=== PATIENT | male | born 1985 | race Caucasian/White ===

== ENCOUNTER 2017-01-09 17:06 | Emergency (ER) | payer OTHER ==
[2017-01-09 17:15] VITALS: BP 129/79; PULSE 60; TEMP 97.8; BMI 24.3
[2017-01-09 17:56] LABS: URINE APPEARANCE CLEAR; URINE BILIRUBIN NEGATIVE (NEGATIVE); URINE BLOOD NEGATIVE (NEGATIVE); URINE COLOR STRAW; URINE GLUCOSE (UA) NEGATIVE (NEGATIVE); URINE KETONE NEGATIVE (NEGATIVE); URINE NITRITE NEGATIVE (NEGATIVE); URINE PROTEIN NEGATIVE (NEGATIVE); URINE UROBILINOGEN NEGATIVE E.U./dl (0.2-1.0)
[2017-01-09 17:57] LABS: URINE LEUK ESTERASE TRACE (NEGATIVE)
[2017-01-09 17:59] LABS: URINE MUCUS RARE; URINE RBC 2 /hpf (0-3); URINE WBC 24 /hpf (3-5)
[2017-01-09] MEDS ORDERED: AZITHROMYCIN 1 GM PACKET PO ONE (18:10)
[2017-01-09] MEDS ORDERED: AZITHROMYCIN 1 GM PACKET ONE (18:11)
--- NOTE | 2017-01-09 18:16 | PDOC ---
History of Present Illness - General Chief Complaint: Urinary Problem Stated Complaint: URINARY PROBLEM Time Seen by Provider: 01/09/17 17:35 History Source: [employer]er Used (Francesca [id number]) Exam Limitations: Language Barrier - History of Present Illness Travel History: Yes ([place] ) Initial Comments: 01/09/17 18:11 31 yr male c/o 3 days painful urination with burning. Pt denies discharge. Pt admits to having unprotected sexual intercourse with 2 Women in [place] last month. Pt denies abd pain denies rectal pain or lesions. no medical or surgical history. Timing/Duration: reports: constant Past History - Past Medical History Allergies/Adverse Reactions: Allergies Allergy/AdvReac Type Severity Reaction Status Date / Time No Known Allergies Allergy Verified 01/09/17 17:12 Home Medications: Ambulatory Orders Cyclobenzaprine HCl [Flexeril -] 10 mg PO HS PRN #7 tablet 04/17/16 Ibuprofen 600 mg PO QID PRN #10 tablet 04/17/16 Hypercholesterolemia: Yes - Family Disease History Comment:: 01/09/17 18:12 none - Immunization History Immunization Up to Date: Yes - Psycho/Social/Smoking Cessation Hx Anxiety: No Suicidal Ideation: No Smoking History: Never smoked Have you smoked in the past 12 months: No Information on smoking cessation initiated: No Hx Alcohol Use: No Drug/Substance Use Hx: No Substance Use Type: None Abd/GI Specific PMHX - Complaint Specific PMHX Colitis: No Diverticulitis: No Gall Bladder Disease: No GERD: No Hepatitis: No Irritable Bowel Synd (IBS): No Pancreatitis: No GI Ulcer Disease: No Review of Systems - Review of Systems Able to Perform ROS?: Yes Is the patient limited Armenian proficient: No Constitutional: No: Symptoms Reported HEENTM: No: Symptoms Reported Respiratory: No: Symptoms reported Cardiac (ROS): No: Symptoms Reported ABD/GI: No: Symptoms Reported : Yes: Symptoms Reported, Burning Musculoskeletal: No: Symptoms Reported *Physical Exam - Vital Signs Last Vital Signs Temp Pulse Resp BP Pulse Ox 97.8 F 60 18 129/79 100 01/09/17 17:13 01/09/17 17:13 01/09/17 17:13 01/09/17 17:13 01/09/17 17:13 - Physical Exam General Appearance: Yes: Nourished, Appropriately Dressed HEENT: positive: EOMI, PAT, TMs Normal, Pharynx Normal Neck: positive: Supple. negative: Tender Respiratory/Chest: positive: Lungs Clear, Normal Breath Sounds Cardiovascular: positive: Regular Rhythm, Regular Rate Gastrointestinal/Abdominal: positive: Normal Bowel Sounds, Soft Male Genitalia: positive: normal genitalia. negative: discharge Musculoskeletal: positive: Normal Inspection Extremity: positive: Normal Capillary Refill, Normal Inspection, Normal Range of Motion Integumentary: positive: Normal Color, Dry, Warm Neurologic: positive: Fully Oriented, Alert, Normal Mood/Affect, Normal Response , Motor Strength / ED Treatment Course - ADDITIONAL ORDERS Additional order review: Laboratory Results 01/09/17 17:40 Urine Color Straw Urine Appearance Clear Urine pH 6.0 Ur Specific [place] 1.019 Urine Protein Negative Urine Glucose (UA) Negative Urine Ketones Negative Urine Blood Negative Urine Nitrite Negative Urine Bilirubin Negative Urine Urobilinogen Negative Ur Leukocyte Esterase Trace H Urine RBC 2 Urine WBC 24 Urine Mucus Rare Medical Decision Making - Medical Decision Making 01/09/17 18:13 cc: burning with urination for 3 days denies discharge unprotected sexual intercourse will treat for GC/chlamydia I have explained in detail that pt 's needs to be tested. pt understands pt refused to have HIV done, states he had HIV done last year. will do RPR . 01/09/17 18:15 *DC/Admit/Observation/Transfer Diagnosis at time of Disposition: Dysuria - Discharge Dispostion Disposition: HOME Condition at time of disposition: Improved - Referrals Referrals: [facility] Masoud Cintron [Outside] - Patient Instructions Additional Instructions: follow at the [facility] for HIV testing call [phone] always aurelio condoms during sexual activity return to ER for any worsening symptoms - Post Discharge Activity Work/School Note: Back to Work
== END 2017-01-09 19:34 | disposition home or self-care (01) ==
LOC: JERFT 17:06
DX: R30.0 Dysuria (principal)
CPT/HCPCS: 36415; 81003; 81015; 86593; 87086; 87491; 87591; 96372; 99281-25

== ENCOUNTER → 2017-02-12 | Emergency (ER) | payer OTHER ==
[~2017-02-12] MED LIST: CIPROFLOXACIN 250 MG TABLET (RESTRICTED TO ID) PO ONE; SODIUM CHLORIDE 1,000 ML IV STA; metroNIDAZOLE 250 MG TABLET ONE; metroNIDAZOLE 250 MG TABLET PO ONE
[2017-02-12 20:29] VITALS: BP 137/72; PULSE 64; TEMP 97.9; BMI 24.3
--- NOTE | 2017-02-12 20:55 | PDOC ---
History of Present Illness - History of Present Illness Initial Comments: 02/12/17 21:32 Patient is a 32 year old male with significant medical hx of hypercholesterolemia (diet controlled) who is presenting to the ED with two weeks of passing loose stools daily. The patient complains of associated intermittent abdominal cramping. He endorses recent travel to [place] in November but denies any symptoms upon arrival. The patient denies any fever, chills, nausea, vomiting, or difficulty urinating. <Michelle Morocho - Last Filed: 02/12/17 21:31> - General History Source: Patient Exam Limitations: No Limitations <Tristan Quintana - Last Filed: 02/12/17 22:56> - General Chief Complaint: Pain, Acute Stated Complaint: STOMACH PAIN Time Seen by Provider: 02/12/17 20:50 Past History <Michelle Morocho - Last Filed: 02/12/17 21:31> - Past Medical History Hypercholesterolemia: Yes - Immunization History Immunization Up to Date: Yes - Psycho/Social/Smoking Cessation Hx Anxiety: No Suicidal Ideation: No Smoking History: Never smoked Have you smoked in the past 12 months: No Hx Alcohol Use: No Drug/Substance Use Hx: No Substance Use Type: None <Tristan Quintana - Last Filed: 02/12/17 22:56> - Past Medical History Allergies/Adverse Reactions: Allergies Allergy/AdvReac Type Severity Reaction Status Date / Time No Known Allergies Allergy Verified 02/12/17 20:27 Home Medications: Ambulatory Orders Ciprofloxacin [Cipro -] 500 mg PO Q12H #14 tablet 02/12/17 Metronidazole [Flagyl -] 500 mg PO Q8H PRN #21 tablet 02/12/17 Review of Systems - Review of Systems Comments:: 02/12/17 21:32 GENERAL/CONSTITUTIONAL: No fever or chills. No weakness. HEAD, EYES, EARS, NOSE AND THROAT: No change in vision. No ear pain or discharge. No sore throat. CARDIOVASCULAR: No chest pain or shortness of breath. RESPIRATORY: No cough, wheezing, or hemoptysis. GASTROINTESTINAL: Abdominal cramping, loose stooling. No nausea, vomiting, or constipation. GENITOURINARY: No dysuria, frequency, or change in urination. MUSCULOSKELETAL: No joint or muscle swelling or pain. No neck or back pain. SKIN: No rash NEUROLOGIC: No headache, vertigo, loss of consciousness, or change in strength/ sensation. <RashawnMichelle - Last Filed: 02/12/17 21:31> *Physical Exam - Vital Signs Last Vital Signs Temp Pulse Resp BP Pulse Ox 97.9 F 64 18 137/72 100 02/12/17 20:27 02/12/17 20:27 02/12/17 20:27 02/12/17 20:27 02/12/17 20:27 - Physical Exam Comments: 02/12/17 21:32 GENERAL: Awake, alert, and fully oriented, in no acute distress HEAD: No signs of trauma EYES: PERRLA, EOMI, sclera anicteric, conjunctiva clear ENT: Auricles normal inspection, hearing grossly normal, nares patent, oropharynx clear without exudates. Moist mucosa NECK: Normal ROM, supple, no lymphadenopathy, JVD, or masses LUNGS: Breath sounds equal, clear to auscultation bilaterally. No wheezes, and no crackles HEART: Regular rate and rhythm, normal S1 and S2, no murmurs, rubs or gallops ABDOMEN: Soft, nontender, normoactive bowel sounds. No guarding, no rebound. No masses EXTREMITIES: Normal range of motion, no edema. No clubbing or cyanosis. No cords, erythema, or tenderness NEUROLOGICAL: Cranial nerves II through XII grossly intact. Normal speech, normal gait SKIN: Warm, Dry, normal turgor, no rashes or lesions noted. ENDOCRINE: No increased thirst. No abnormal weight change. HEMATOLOGIC/LYMPHATIC: No anemia, easy bleeding, or history of blood clots. ALLERGIC/IMMUNOLOGIC: No hives or skin allergy. <RashawnMichelle - Last Filed: 02/12/17 21:31> - Vital Signs Last Vital Signs Temp Pulse Resp BP Pulse Ox 97.9 F 64 18 137/72 100 02/12/17 20:27 02/12/17 20:27 02/12/17 20:27 02/12/17 20:27 02/12/17 20:27 <Tristan Quintana - Last Filed: 02/12/17 22:56> ED Treatment Course - LABORATORY CBC & Chemistry Diagram: 02/12/17 21:00 02/12/17 21:00 <Tristan Quintana - Last Filed: 02/12/17 22:56> Medical Decision Making - Medical Decision Making 02/12/17 21:22 A portion of this note was documented by scribe services under my direction. I have reviewed the details of the note, within reason, and agree with the documentation with the following case summary and management plan written by me. Patient treated in the ED. Nursing notes are reviewed and incorporated into the medical decision-making. Vital signs reviewed. Peripheral IV access obtained by the nurse, laboratory studies are drawn and sent, reviewed and interpreted by myself. Vital Signs Temp Pulse Resp BP Pulse Ox 97.9 F 64 18 137/72 100 02/12/17 20:27 02/12/17 20:27 02/12/17 20:27 02/12/17 20:27 02/12/17 20:27 32-year-old male with diet-controlled hyperlipidemia presents with 2 weeks of multiple loose stools daily. Patient reports some intermittent abdominal cramping but denies any nausea or vomiting. Denies fevers or chills. Patient did travel to [place] in November but reported no symptoms upon arrival. Denies sick contacts. Patient is nontender abdomen. We'll draw blood work to determine if there is any laboratory abnormalities. We'll likely initiate ciprofloxacin and Flagyl for empiric antibiotics for enteritis versus colitis. He is overall well-appearing, and appears hydrated. Appears nontoxic. 02/12/17 22:49 CBC, BMP 02/12/17 21:00 02/12/17 21:00 CMP Sodium 140 mmol/L (136-145) 02/12/17 21:00 Potassium 3.5 mmol/L (3.5-5.1) 02/12/17 21:00 Chloride 104 mmol/L (98-107) 02/12/17 21:00 Carbon Dioxide 29 mmol/L (21-32) 02/12/17 21:00 Anion Gap 7 (8-16) L 02/12/17 21:00 BUN 15 mg/dL (7-18) 02/12/17 21:00 Creatinine 0.7 mg/dL (0.7-1.3) 02/12/17 21:00 Creat Clearance w eGFR > 60 (>60) 02/12/17 21:00 Random Glucose 112 mg/dL (74-106) H 02/12/17 21:00 Calcium 9.3 mg/dL (8.5-10.1) 02/12/17 21:00 Total Bilirubin 0.6 mg/dL (0.2-1.0) 02/12/17 21:00 AST 21 U/L (15-37) 02/12/17 21:00 ALT 58 U/L (12-78) 02/12/17 21:00 Alkaline Phosphatase 92 U/L (45-117) 02/12/17 21:00 Total Protein 8.2 g/dl (6.4-8.2) 02/12/17 21:00 Albumin 4.4 g/dl (3.4-5.0) 02/12/17 21:00 Lipase 115 U/L (73-393) 02/12/17 21:00 Urine Test Results Urine Color Yellow 02/12/17 22:19 Urine Appearance Clear 02/12/17 22:19 Urine pH 5.0 (5.0-8.0) 02/12/17 22:19 Ur Specific [place] 1.023 (1.001-1.035) 02/12/17 22:19 Urine Protein Negative (NEGATIVE) 02/12/17 22:19 Urine Glucose (UA) Negative (NEGATIVE) 02/12/17 22:19 Urine Ketones Negative (NEGATIVE) 02/12/17 22:19 Urine Blood Negative (NEGATIVE) 02/12/17 22:19 Urine Nitrite Negative (NEGATIVE) 02/12/17 22:19 Urine Bilirubin Negative (NEGATIVE) 02/12/17 22:19 Ur Leukocyte Esterase Negative (NEGATIVE) 02/12/17 22:19 Labs and UA reviewed. No acute findings. The patient is tolerating PO and appears well. Will write an empiric prescription for cipro and flagyl for presumed enteritis. Will give referral to GI. I discussed the physical exam findings, ancillary test results and final diagnoses with the patient. I answered all of the patient's questions. The patient was satisfied with the care received and felt comfortable with the discharge plan and treatment plan. The patient will call their primary care physician within 24 hours to arrange follow-up and will return to the Emergency Department with any new, persistant or worsening symptoms. <Tristan Quintana - Last Filed: 02/12/17 22:56> *DC/Admit/Observation/Transfer - Attestations Scribe Attestion: 02/12/17 21:33 Documentation prepared by Michelle Morocho, acting as medical scientist for Tristan Quintana MD. <Michelle Morocho - Last Filed: 02/12/17 21:31> - Discharge Dispostion Admit: No <Tristan Quintana - Last Filed: 02/12/17 22:56> Diagnosis at time of Disposition: Enteritis - Discharge Dispostion Disposition: HOME Condition at time of disposition: Improved - Prescriptions Prescriptions: Ciprofloxacin [Cipro -] 500 mg PO Q12H #14 tablet Metronidazole [Flagyl -] 500 mg PO Q8H PRN #21 tablet PRN Reason: Diarrhea - Referrals Referrals: Loi Medrano MD [Staff Physician] - - Patient Instructions Printed Discharge Instructions: DI for Diarrhea and Traveler's Diarrhea -- Adult Additional Instructions: Please drink plenty of fluids and rest. Take 500 mg ciprofloxacin every 12 hours and 500 mg flagyl every 8 hours for 1 week. Follow up with your doctor.
[2017-02-12 21:54] LABS: BASOPHIL 1.1 % (0-2.0); EOSINOPHIL 19.5 % (0-4.5); MCH 30.2 pg (25.7-33.7); MEAN CELL VOLUME 88.8 fl (80-96); MEAN PLT VOLUME 9.6 fl (7.5-11.1); NEUTROPHILS 37.4 % (42.8-82.8); PLATELET COUNT 243 K/MM3 (134-434); WHITE BLOOD COUNT 6.7 K/mm3 (4.0-10.0)
[2017-02-12 22:19] LABS: ALBUMIN 4.4 g/dl (3.4-5.0); ANION GAP 7 (8-16); BILIRUBIN,TOTAL 0.6 mg/dL (0.2-1.0); CALCIUM 9.3 mg/dL (8.5-10.1); CO2 29 mmol/L (21-32); CREATININE 0.7 mg/dL (0.7-1.3); GLUCOSE,RANDOM 112 mg/dL (74-106); SGOT/AST 21 U/L (15-37); SGPT/ALT 58 U/L (12-78); TOT PROT 8.2 g/dl (6.4-8.2)
[2017-02-12 22:20] LABS: ALK PHOS 92 U/L (45-117)
[2017-02-12 22:33] LABS: URINE APPEARANCE CLEAR; URINE BILIRUBIN NEGATIVE (NEGATIVE); URINE BLOOD NEGATIVE (NEGATIVE); URINE COLOR YELLOW; URINE GLUCOSE (UA) NEGATIVE (NEGATIVE); URINE KETONE NEGATIVE (NEGATIVE); URINE LEUK ESTERASE NEGATIVE (NEGATIVE); URINE NITRITE NEGATIVE (NEGATIVE); URINE PROTEIN NEGATIVE (NEGATIVE); URINE UROBILINOGEN NEGATIVE E.U./dl (0.2-1.0)
== END | disposition home or self-care (01) ==
LOC: JER 20:23
PROC: 3E0337Z Introduction of Electrolytic and Water Balance Substance into Peripheral Vein, Percutaneous Approach (ICD-10-PCS; principal; 2017-02-12)
DX: K52.9 Noninfective gastroenteritis and colitis, unspecified (principal)
CPT/HCPCS: 36415; 80053; 81003; 83690; 85025; 87086; 99283-25

== ENCOUNTER 2017-12-07 19:24 | Emergency (ER) | payer OTHER ==
--- NOTE | 2017-12-07 19:58 | PDOC ---
Rapid Medical Evaluation Time Seen by Provider: 12/07/17 19:55 Medical Evaluation: Allergies Allergy/AdvReac Type Severity Reaction Status Date / Time No Known Allergies Allergy Verified 02/12/17 20:27 12/07/17 19:55 Pt presents to the ED: rt ankle since thursday. denies injury Pt on brief exam: mild tenderness to distal achilles, no deformity , minimal edema, no erythema Pt ordered for:none Pt to proceed to the ED Discharge Disposition - Diagnosis Ankle pain, right - Referrals - Patient Instructions - Post Discharge Activity
[2017-12-07 20:00] VITALS: BP 134/69; PULSE 67; TEMP 97.9; BMI 24.1
--- NOTE | 2017-12-07 20:57 | PDOC ---
History of Present Illness - General Chief Complaint: Pain Stated Complaint: RT ANKLE PAIN/COUGH Time Seen by Provider: 12/07/17 19:55 History Source: Patient Exam Limitations: No Limitations - History of Present Illness Initial Comments: 12/07/17 20:53 32-year-old male with no medical history presents to the emergency department complaining of intermittent right Achilles discomfort 4 years. Patient states he cannot recall an injury/fall or trauma but states 4 years ago, he had discomfort to bilateral Achilles tendon. Pain subsided after taking Motrin. For the past 30 days, patient states his right sided Achilles tendon feels like a dull ache when ambulating and alleviated at rest. Patient is also complaining of a sore throat times approximately 32 days. Patient states he did take a prescribed medication while vacationing in [place] but cannot recall the name. Patient states he is able to eat and drink without any difficulties. Patient denies fever, chills, nausea/vomiting, facial pains, earaches, rhinorrhea, nasal congestion, neck pain/stiffness, back pains, chest pain, shortness of breath, abdominal discomfort. Patient denies extremity numbness or tingling sensation. Patient states he is able to ambulate Timing/Duration: other (1 month) Past History - Past Medical History Allergies/Adverse Reactions: Allergies Allergy/AdvReac Type Severity Reaction Status Date / Time No Known Allergies Allergy Verified 12/07/17 19:56 Home Medications: Ambulatory Orders Acetaminophen [Tylenol] 650 mg PO QID PRN 12/07/17 COPD: No Hypercholesterolemia: Yes - Immunization History Immunization Up to Date: Yes - Suicide/Smoking/Psychosocial Hx Smoking History: Never smoked Have you smoked in the past 12 months: No Hx Alcohol Use: No Drug/Substance Use Hx: No Substance Use Type: None Review of Systems - Review of Systems Able to Perform ROS?: Yes Comments:: 12/07/17 20:56 CONSTITUTIONAL: Absent: fever, chills, diaphoresis, generalized weakness, malaise, loss of appetite HEENT: +throat pain Absent: rhinorrhea, nasal congestion, throat swelling, difficulty swallowing, mouth swelling, ear pain, eye pain, visual Changes CARDIOVASCULAR: Absent: chest pain, loss of consciousness, palpitations, irregular heart rate, peripheral edema RESPIRATORY: Absent: cough, shortness of breath, dyspnea with exertion, orthopnea, wheezing, stridor, hemoptysis GASTROINTESTINAL: Absent: abdominal pain, abdominal distension, nausea, vomiting, diarrhea, constipation, melena, hematochezia GENITOURINARY: Absent: dysuria, frequency, urgency, hesitancy, hematuria, flank pain, genital pain MUSCULOSKELETAL: +right achilles pain Absent: myalgia, arthralgia, joint swelling SKIN: Absent: rash, itching, pallor HEMATOLOGIC/IMMUNOLOGIC: Absent: easy bleeding, easy bruising, lymphadenopathy, frequent infections ENDOCRINE: Absent: unexplained weight gain, unexplained weight loss, heat intolerance, cold intolerance NEUROLOGIC: Absent: headache, focal weakness or paresthesias, dizziness, unsteady gait, seizure, mental status changes, bladder or bowel incontinence PSYCHIATRIC: Absent: anxiety, depression, suicidal or homicidal ideation, hallucinations. Is the patient limited Malay proficient: No *Physical Exam - Vital Signs Last Vital Signs Temp Pulse Resp BP Pulse Ox 97.9 F 67 16 134/69 99 12/07/17 19:59 12/07/17 19:59 12/07/17 19:59 12/07/17 19:59 12/07/17 19:59 - Physical Exam Comments: 12/07/17 20:57 GENERAL: Well developed, well nourished. Awake and alert. No acute distress. HEENT: Normocephalic, atraumatic. PERRLA, EOMI. No conjunctival pallor. Sclera are non- icteric. Moist mucous membranes. Oropharynx is clear. NECK: Supple. Full ROM. No JVD. Carotid pulses 2+ and symmetric, without bruits. No thyromegaly. No lymphadenopathy. CARDIOVASCULAR: Regular rate and rhythm. No murmurs, rubs, or gallops. Distal pulses are 2+ and symmetric. PULMONARY: No evidence of respiratory distress. Lungs clear to auscultation bilaterally. No wheezing, rales or rhonchi. ABDOMINAL: Soft. Non-tender. Non-distended. No rebound or guarding. No organomegaly. Normoactive bowel sounds. MUSCULOSKELETAL Neg achilles derormities, neg [place] Normal range of motion at all joints. No bony deformities or tenderness. No CVA tenderness. EXTREMITIES: No cyanosis. No clubbing. No edema. No calf tenderness. SKIN: Warm and dry. Normal capillary refill. No rashes. No jaundice. NEUROLOGICAL: Alert, awake, appropriate. Cranial nerves 2-12 intact. No deficits to light touch and temperature in face, upper extremities and lower extremities. No motor deficits in the in face, upper extremities and lower extremities. Normoreflexic in the upper and lower extremities. Normal speech. Toes are down- going bilaterally. Gait is normal without ataxia. PSYCHIATRIC: Cooperative. Good eye contact. Appropriate mood and affect. *DC/Admit/Observation/Transfer Diagnosis at time of Disposition: Pain in Achilles tendon Pharyngitis Qualifiers: Pharyngitis/tonsillitis etiology: unspecified etiology Qualified Code(s): J02.9 - Acute pharyngitis, unspecified - Discharge Dispostion Condition at time of disposition: Stable Admit: No - Referrals Referrals: Hunter Cleary MD [Staff Physician] - De Cloud MD [Staff Physician] - - Patient Instructions Printed Discharge Instructions: DI for Achilles Tendinopathy, DI for Viral Pharyngitis Additional Instructions: Tylenol or Motrin as needed for pain Follow up with the Orthopedic surgeon/Dr. Cleary You've had a sore throat for a month, the strep throat swab came back negative. You need to follow up with the ENT physician/Dr. Cloud. Return to the ER for severe/persistent/worsening symptoms - Post Discharge Activity
== END 2017-12-07 21:49 | disposition home or self-care (01) ==
LOC: JERFT 19:24
DX: M76.61 Achilles tendinitis, right leg (principal); J02.9 Acute pharyngitis, unspecified
CPT/HCPCS: 87070; 87430; 99281-25

== ENCOUNTER 2023-01-08 10:26 | Emergency (ER) | payer OTHER ==
[2023-01-08 10:37] VITALS: BP 130/79; PULSE 68; RESP 18; TEMP 98.5; BMI 24.3
[2023-01-08] MEDS ORDERED: IBUPROFEN 600 MG TABLET (FP) PO ONE ×2 (11:12→11:17)
[2023-01-08 11:56] LABS: BASO % 0.5 % (0-2.0); EOS % 9.6 % (0-4.5); HEMATOCRIT 44.7 % (35.4-49); HEMOGLOBIN 15.2 GM/dL (11.7-16.9); LYMPH % 19.3 % (8-40); MCH 30.2 pg (25.7-33.7); MEAN CELL VOLUME 88.7 fl (80-96); MEAN PLT VOLUME 8.8 fl (7.5-11.1); MONO % 7.9 % (3.8-10.2); NEUT % 62.7 % (42.8-82.8); PLATELET COUNT 238 10^3/uL (134-434); RBC 5.04 M/mm3 (4.00-5.60); RDW 13.2 % (11.9-15.9); WHITE BLOOD COUNT 6.2 K/mm3 (4.0-10.0)
[2023-01-08 12:32] LABS: CHLORIDE 105 mmol/L (98-107); SODIUM 138 mmol/L (136-145)
[2023-01-08 12:34] LABS: ALBUMIN 3.9 g/dl (3.4-5.0); ANION GAP 6 MMOL/L (8-16); BLOOD UREA NITROGEN 16.4 mg/dL (7-18); CALCIUM 8.8 mg/dL (8.5-10.1); CO2 27 mmol/L (21-32); MAGNESIUM 2.2 mg/dL (1.8-2.4)
[2023-01-08 12:35] LABS: GLUCOSE,RANDOM 102 mg/dL (74-106)
[2023-01-08 12:37] LABS: SGPT/ALT 91 U/L (13-61)
[2023-01-08 12:38] LABS: CREATININE 0.7 mg/dL (0.55-1.3); SGOT/AST 37 U/L (15-37)
[2023-01-08 12:40] LABS: ALK PHOS 98 U/L (45-117); BILIRUBIN,TOTAL 0.7 mg/dL (0.2-1); TOT PROT 7.6 g/dl (6.4-8.2)
== END 2023-01-08 12:54 | disposition home or self-care (01) ==
LOC: JER 10:26 → JERFT 10:26
DX: M94.0 Chondrocostal junction syndrome [Tietze] (principal)
CPT/HCPCS: 36415; 71046-TC-FY; 80053; 83735; 84484; 85025; 93005; 93010; 99285-25